=== PATIENT | female | born 1995 | race Caucasian/White ===

== ENCOUNTER 2022-12-06 19:47 | Emergency (ER) | payer OTHER ==
[~2022-12-06] VITALS: Ht 152.4 cm; Wt 94.0 kg
[2022-12-06 21:44] VITALS: BP 107/71
[2022-12-06] MEDS ORDERED: SODIUM CHLORIDE 0.9% 1,000 ML IV ONE (22:15)
[2022-12-06 22:22] LABS: BASOPHILS % (AUTO) 0.4 % (0.0-2.0); HEMATOCRIT 40.1 % (36-46); HEMOGLOBIN 13.1 g/dL (12.0-16.0); LYMPHOCYTES # (AUTO) 1.3 K/uL (1.0-4.8); MEAN CORPUSCULAR HEMOGLOBIN 26.9 pg (26.0-34.0); MEAN CORPUSCULAR HGB CONC 32.7 G/dL (31.0-37.0); MEAN CORPUSCULAR VOLUME 82 fL (80-100); MONOCYTES # (AUTO) 0.7 K/uL (0.1-1.0); MONOCYTES % (AUTO) 8.8 % (2.0-9.0); NEUTROPHILS # (AUTO) 5.8 K/uL (1.8-7.7); NEUTROPHILS % (AUTO) 73.8 % (40.0-70.0); PLATELET COUNT (AUTO) 295 K/uL (150-450); RED BLOOD CELL COUNT(AUTO) 4.87 MIL/uL (4.00-5.20); RED CELL DISTRIBUTION WIDTH 14.8 % (11.5-14.5)
[2022-12-06 22:31] LABS: ANION GAP 7 mmol/L (8-16); CALCIUM, TOTAL 9.3 mg/dL (8.8-10.5); CARBON DIOXIDE 28 mmol/L (22-29); CHLORIDE 104 mmol/L (98-107); CREATININE 0.78 mg/dL (0.60-1.30); GLOMERULAR FILTR. RATE CALC > 60 mL/min (>60); GLUCOSE,RANDOM 102 mg/dL (70-110); POTASSIUM 4.3 mmol/L (3.5-5.1); SODIUM SERUM 139 mmol/L (136-145); UREA NITROGEN, BLOOD 7 mg/dL (7-18)
[2022-12-06 22:45] LABS: ALANINE AMINOTRANSFERASE 28 U/L (12-78); ALBUMIN 3.8 g/dL (3.4-5.0); ALKALINE PHOSPHATASE 63 U/L (46-116); ASPARTATE AMINOTRANSFERASE 18 U/L (15-37); BILIRUBIN,TOTAL 0.3 mg/dL (0.1-1.0); HCG,QUANTITATIVE < 1 mIU/mL (0-6); LIPASE 89 U/L (73-393); TOTAL PROTEIN, SERUM 8.2 g/dL (6.4-8.2)
[2022-12-06] MEDS ORDERED: DiphenhydrAMINE HCL 50 MG/ML VIAL IVP ONE (23:15)
[2022-12-06] MEDS ORDERED: METOCLOPRAMIDE HCL 5 MG/ML 2 ML VIAL IVP ONE (23:15)
[2022-12-06] MEDS ORDERED: KETOROLAC TROMETHAMINE 30 MG/ML VIAL IVP ONE (23:15)
[2022-12-07 01:25] LABS: APPEARANCE,URINE CLEAR (CLEAR); BILIRUBIN,URINE NEGATIVE (NEGATIVE); GLUCOSE, URINE (UA) NEGATIVE (NEGATIVE); KETONES,URINE NEGATIVE (NEGATIVE); LEUKOCYTE ESTERASE ,URINE NEGATIVE (NEGATIVE); NITRATE,URINE NEGATIVE (NEGATIVE); OCCULT BLOOD,URINE TRACE (NEGATIVE); PH,URINE 6.5 (5.0-8.0); PROTEIN,URINE NEGATIVE (NEGATIVE); SPECIFIC GRAVITIY, URINE 1.008 (1.003-1.030); UROBILINOGEN,URINE <=1.0 mg/dL (<=1.0)
[2022-12-07 01:40] LABS: BACTERIA,URINE None Seen /HPF (None Seen); SQUAMOUS EPITHELIAL CELL,UR Few /LPF (None Seen); WBC,URINE 0-2 /HPF (0-5)
== END 2022-12-07 01:25 | disposition home or self-care (01) ==
LOC: EMS 19:53
DX: G43.909 Migraine, unspecified, not intractable, without status migrainosus (principal); R11.2 Nausea with vomiting, unspecified; R19.7 Diarrhea, unspecified
CPT/HCPCS: 99284; 96374; 96375; 80053; 81001; 83690; 84702; 84703; 85025; 36415; 93005; 96361; J1200; J1885; J2765; J7030

== ENCOUNTER 2023-03-09 21:44 | Emergency (ER) | payer OTHER ==
[~2023-03-09] VITALS: Ht 152.4 cm; Wt 93.2 kg
[2023-03-10] MEDS ORDERED: KETOROLAC TROMETHAMINE 60 MG/2 ML VIAL IM ONE (00:45)
[2023-03-10] MEDS ORDERED: FLUORESCEIN SODIUM 1 MG STRIP ONE (01:05)
[2023-03-10] MEDS ORDERED: PROPARACAINE HCL 0.5% 15 ML OPHTHALMIC SOLUTION ONE (01:07)
[2023-03-10] MEDS ORDERED: PROPARACAINE HCL 0.5% 15 ML OPHTHALMIC SOLUTION OD ONE (01:15)
[2023-03-10] MEDS ORDERED: NEOMYCIN/BACITRACIN/POLYMYXIN B 3.5 GM OPHTHALMIC OINTMENT OD ONE (01:45)
[2023-03-10] MEDS ORDERED: GENTAMICIN SULFATE 0.3% OPHTHALMIC SOLUTION 5 ML OD ONE (01:45)
[2023-03-10 01:55] VITALS: BP 115/69
== END 2023-03-10 02:07 | disposition home or self-care (01) ==
LOC: EMS 21:44
DX: S05.01XA Injury of conjunctiva and corneal abrasion without foreign body, right eye, initial encounter (principal); X58.XXXA Exposure to other specified factors, initial encounter; Y93.89 Activity, other specified; Y92.89 Other specified places as the place of occurrence of the external cause; Y99.8 Other external cause status
CPT/HCPCS: 99283; 96372; J1885

== ENCOUNTER 2024-01-29 20:58 | Emergency (ER) | payer OTHER ==
[~2024-01-29] VITALS: Ht 149.9 cm; Wt 100.0 kg
[2024-01-29 21:23] VITALS: BP 125/68; PULSE 73; RESP 16; TEMP 98.3
[2024-01-29] MEDS ORDERED: CIPOTIC AD (22:59)
== END 2024-01-29 21:30 | disposition home or self-care (01) ==
LOC: EMS 21:00
DX: H60.501 Unspecified acute noninfective otitis externa, right ear (principal); Z90.49 Acquired absence of other specified parts of digestive tract
CPT/HCPCS: 99283; Z7502

== ENCOUNTER 2024-02-08 18:53 | Emergency (ER) | payer OTHER ==
[~2024-02-08] VITALS: Ht 149.9 cm; Wt 100.0 kg
[~2024-02-08 18:53] MED LIST: CIPOTIC AD
[2024-02-08 19:25] LABS: BASOPHILS % (AUTO) 0.3 % (0.0-2.0); HEMATOCRIT 40.8 % (36-46); HEMOGLOBIN 13.6 g/dL (12.0-16.0); LYMPHOCYTES # (AUTO) 1.9 K/uL (1.0-4.8); LYMPHOCYTES % (AUTO) 19.2 % (22.0-44.0); MEAN CORPUSCULAR HEMOGLOBIN 28.2 pg (26.0-34.0); MEAN CORPUSCULAR HGB CONC 33.3 G/dL (31.0-37.0); MEAN CORPUSCULAR VOLUME 85 fL (80-100); MONOCYTES # (AUTO) 0.6 K/uL (0.1-1.0); MONOCYTES % (AUTO) 6.2 % (2.0-9.0); NEUTROPHILS # (AUTO) 7.2 K/uL (1.8-7.7); NEUTROPHILS % (AUTO) 72.3 % (40.0-70.0); PLATELET COUNT (AUTO) 266 K/uL (150-450); RED BLOOD CELL COUNT(AUTO) 4.81 MIL/uL (4.00-5.20); RED CELL DISTRIBUTION WIDTH 13.7 % (11.5-14.5)
[2024-02-08 19:32] LABS: ANION GAP 6 mmol/L (8-16); CALCIUM, TOTAL 8.5 mg/dL (8.8-10.5); CARBON DIOXIDE 27 mmol/L (22-29); CHLORIDE 106 mmol/L (98-107); CREATININE 0.65 mg/dL (0.60-1.30); GLOMERULAR FILTR. RATE CALC > 60 mL/min (>60); GLUCOSE,RANDOM 117 mg/dL (70-110); POTASSIUM 3.4 mmol/L (3.5-5.1); SODIUM SERUM 139 mmol/L (136-145); UREA NITROGEN, BLOOD 8 mg/dL (7-18)
[2024-02-08 19:37] LABS: ALANINE AMINOTRANSFERASE 50 U/L (12-78); ALBUMIN 3.3 g/dL (3.4-5.0); ALKALINE PHOSPHATASE 63 U/L (46-116); ASPARTATE AMINOTRANSFERASE 21 U/L (15-37); BILIRUBIN,TOTAL 0.2 mg/dL (0.1-1.0)
[2024-02-08] MEDS ORDERED: HYDR-4723 PO (21:20)
[2024-02-08] MEDS ORDERED: CEPH-558 PO (21:20)
[2024-02-08] MEDS ORDERED: IBUP-1554 PO (21:20)
[2024-02-08] MEDS: HYDROmorphone HCL 2 MG/ML SYRINGE IM ONE (21:42)
[2024-02-08] MEDS: DiphenhydrAMINE HCL 50 MG/ML VIAL IM ONE (21:43)
[2024-02-08 22:18] VITALS: BP 140/84; PULSE 87; RESP 16; TEMP 98.4
== END 2024-02-08 22:20 | disposition home or self-care (01) ==
LOC: EMS 19:02
DX: H66.92 Otitis media, unspecified, left ear (principal); H60.91 Unspecified otitis externa, right ear; G43.909 Migraine, unspecified, not intractable, without status migrainosus; Z90.49 Acquired absence of other specified parts of digestive tract
CPT/HCPCS: 99284; 80053; 84703; 85025; 36415; 96372; J1200; J1170

== ENCOUNTER 2024-06-26 21:49 | Emergency (ER) | payer OTHER ==
[~2024-06-26] VITALS: Ht 152.4 cm; Wt 104.5 kg
[~2024-06-26 21:49] MED LIST changes: +CEPH-558 PO; +HYDR-4062 PO; +IBUP-1554 PO
[2024-06-26 22:06] VITALS: TEMP 98.8
[2024-06-26] MEDS ORDERED: ACET-3385 PO (23:44)
[2024-06-27] MEDS: ACETAMINOPHEN 500 MG TABLET PO ONE (01:00)
[2024-06-27 01:58] VITALS: BP 105/54; PULSE 78; RESP 16; O2SAT 99
== END 2024-06-27 02:03 | disposition home or self-care (01) ==
LOC: EMS 21:49
DX: S93.402A Sprain of unspecified ligament of left ankle, initial encounter (principal); W18.49XA Other slipping, tripping and stumbling without falling, initial encounter; Y93.89 Activity, other specified; Y92.89 Other specified places as the place of occurrence of the external cause; Y99.8 Other external cause status
CPT/HCPCS: 99284